=== PATIENT | male | born 1960 | race Caucasian/White ===

== ENCOUNTER 2024-06-18 15:05 | Emergency (ER) | payer OTHER, SELFPAY ==
[2024-06-18] MEDS ORDERED: Ipratropium/Albuterol 3 ML NEB ONE (16:05)
[2024-06-18] MEDS ORDERED: guaiFENesin ER 600 MG TAB ONE (16:05)
[2024-06-18 16:07] LABS: #Eosinphils 0.1 thou/uL (0.0-0.7); #Lymphocytes 0.7 thou/uL (1.20-3.40); #Monocytes 0.8 thou/uL (0.11-0.59); #Neutrophils 10.6 thou/uL (1.40-6.50); %Basophils 0.4 % (0.0-1.0); %Eosinophils 1.1 % (0.0-10.0); %Lymphocytes 5.9 % (21.0-51.0); %Monocytes 6.5 % (0.0-10.0); %Neutrophils 86.2 % (42.0-75.0); Hematocrit 45.9 % (42.0-52.0); Hemoglobin 14.9 g/dL (14.0-18.0); Mean Corpuscular HGB CONC 32.4 g/dL (32.0-36.0); Mean Corpuscular Hemoglobin 29.3 pg (27.0-31.0); Mean Corpuscular Volume 90.5 fl (78.0-98.0); Mean Platelet Volume 7.5 fL (7.4-10.4); Platelet Count 175 10x3/uL (130-400); RBC Distribution Width 11.8 % (11.5-14.5); Red Blood Cell (RBC) Count 5.07 mill/uL (4.70-6.10); White Blood Cell (WBC) Count 12.3 10x3/uL (4.8-10.8)
[2024-06-18 16:11] LABS: Bilirubin Negative (Negative); Blood, Urine Negative (Negative); Clarity Clear (Clear); Glucose, Urine (Dipstick) 100 mg/dL (Negative); Ketone, Urine Negative (Negative); Leukocyte Negative (Negative); Nitrite Negative (Negative); Protein, Urine (Dipstick) Negative (Neg-Trace); Specific Gravity, Urine 1.015 (1.005-1.030); pH, Urine 7.5 (5.0-9.0)
[2024-06-18 16:17] LABS: ALT (SGPT) 8 U/L (8-55); AST (SGOT) 18 U/L (5-34); Albumin 4.1 g/dL (3.4-4.8); Alkaline Phosphatase 115 U/L (40-110); Anion Gap 14 mmol/L (10-20); BUN (Urea Nitrogen) 9 mg/dL (8.4-25.7); Bilirubin, Total 0.8 mg/dL (0.2-1.2); Calc. Creatinine Clearance 0 mL/min (70-130); Calcium 9.5 mg/dL (7.8-10.44); Carbon Dioxide 25 mmol/L (23-31); Chloride 103 mmol/L (98-107); Estimated GFR 100; Globulin 3.3 g/dL (2.4-3.5); Glucose 121 mg/dL (80-115); Lipase 46 U/L (8-78); Potassium 3.9 mmol/L (3.5-5.1); Protein, Total 7.4 g/dL (5.8-8.1); Sodium 138 mmol/L (136-145)
[2024-06-18 16:19] LABS: Base Excess-Venous 3.1 mmol/L (-2.0 to 3.0); Bicarbonate (HCO3v) 27.6 mmol/L (22.0-28.0); CO2 Tension (PvCO2) 40.4 mmHg (42.0-51.0); Calcium, Ionized 1.15 mmol/L (1.15-1.33); Chloride 102 mmol/L (98-107); Hemoglobin - Calc 16.2 g/dL (14.0-18.0); Sodium 140 mmol/L (138-145); T. Carbon Dioxide 28.8 mmol/L (22.0-28.0); vO2 Saturation-calc 53.6 % (60.0-85.0)
[2024-06-18] MEDS ORDERED: predniSONE 20 MG TAB ONE (17:22)
== END 2024-06-18 17:30 | disposition home or self-care (01) ==
LOC: NAV ERS 15:05
DX: T17.990A Other foreign object in respiratory tract, part unspecified in causing asphyxiation, initial encounter (principal); J45.909 Unspecified asthma, uncomplicated; R06.02 Shortness of breath; F17.220 Nicotine dependence, chewing tobacco, uncomplicated; I10 Essential (primary) hypertension
CPT/HCPCS: 36415; 71046; 80053; 81001; 82330; 82435; 82803; 83690; 84132; 84295; 85014; 85025; J7512; J7620